=== PATIENT | female | born 1935 | race Caucasian/White ===

== ENCOUNTER → 2017-01-08 | Outpatient (CLI) | payer MEDICARE ==
[~2017-01-08] VITALS: Ht 157.5 cm; Wt 73.5 kg
[~2017-01-08] MED LIST: ASPI-556 PO; BIMA12.5OS OU; COMB5OS OU; FURO20TA4 PO; LORA-192 PO; MELA1TAB8 PO; OMEP10 PO
[2017-01-08 14:32] VITALS: BP 127/58
== END | disposition home or self-care (01) ==
LOC: SRCNTR 14:22
PROVIDERS: ATTEND Internal Medicine
DX: J44.9 Chronic obstructive pulmonary disease, unspecified (principal); I10 Essential (primary) hypertension; K21.9 Gastro-esophageal reflux disease without esophagitis; Z77.22 Contact with and (suspected) exposure to environmental tobacco smoke (acute) (chronic); Z79.82 Long term (current) use of aspirin
CPT/HCPCS: G0463